=== PATIENT | female | born 1955 | race Caucasian/White ===

== ENCOUNTER 2018-03-05 19:06 | Emergency (ER) | payer MEDICARE ==
[~2018-03-05] VITALS: Ht 162.6 cm; Wt 51.7 kg
[~2018-03-05 19:06] MED LIST: ASPI81CH PO; LEVSOD100 PO; LISI5 PO; OXYC5 PO; Roxicodone5 MG PO
[2018-03-05] MEDS ORDERED: Amlodipine Bes2.5 MG PO (19:17)
[2018-03-05] MEDS ORDERED: ATEN25 PO (19:17)
[2018-03-05 19:33] LABS: BASOPHILS ABSOLUTE AUTO 0.08 K/mm3 (0.00-0.23); BASOPHILS PERCENT AUTO 1 % (0-2); EOSINOPHILS PERCENT AUTO 1 % (0-6); Hematocrit 42.2 % (33.0-51.0); Hemoglobin 14.6 g/dL (11.5-16.0); IMMATURE GRAN ABSOLUTE AUTO 0.02 K/mm3 (0.00-0.10); IMMATURE GRAN PERCENT AUTO 0 % (0-1); LYMPHOCYTES ABSOLUTE AUTO 3.46 K/mm3 (0.84-5.20); LYMPHOCYTES PERCENT AUTO 35 % (21-46); MONOCYTES ABSOLUTE AUTO 0.61 K/mm3 (0.16-1.47); MONOCYTES PERCENT AUTO 6 % (4-13); Mean Corpuscular HGB 34.2 pg (26.0-34.0); Mean Corpuscular HGB Conc 34.6 g/dL (31.5-36.5); Mean Corpuscular Volume 99 fL (80-100); Mean Platelet Volume 10.7 fL (9.1-12.4); NEUTROPHILS ABSOLUTE AUTO 5.69 K/mm3 (1.96-9.15); NEUTROPHILS PERCENT AUTO 57 % (41-73); Platelet Count 366 K/mm3 (150-400); RDW Coefficient Variation 16.3 % (11.7-14.2); RDW Standard Deviation 58.1 fL (35.1-46.3); Red Blood Cell Count 4.27 M/mm3 (3.80-5.20); White Blood Cell Count 9.96 K/mm3 (4.00-11.30)
[2018-03-05 20:04] LABS: Alanine Aminotransfer (ALT/SGP 54 U/L (12-78); Albumin, Blood 3.9 g/dL (3.4-5.0); Albumin/Globulin Ratio 1.1 (0.8-1.8); Alk Phos 89 U/L (50-136); Anion Gap 7 mmol/L (6-16); Aspartate Aminotrans (AST/SGOT 65 U/L (12-37); Bilirubin, Total 0.3 mg/dL (0.1-1.0); Blood Urea Nitrogen 11 mg/dL (8-24); Bun/Creatinine Ratio 11.2 (12.0-20.0); CO2, Blood 26 mmol/L (21-32); Calcium, Blood 9.2 mg/dL (8.5-10.1); Chloride, Blood 108 mmol/L (98-108); Creatinine, Blood 0.98 mg/dL (0.40-1.00); Globulin, Blood 3.5 g/dL (2.2-4.0); Glomerular Filtration Rate >60 (60-); Glucose, Blood 89 mg/dL (70-99); Potassium, Blood 3.9 mmol/L (3.5-5.5); Sodium, Blood 141 mmol/L (136-145); Total Protein, Blood 7.4 g/dL (6.4-8.2); Troponin I <0.015 ng/mL (0.000-0.040)
== END 2018-03-05 23:23 | disposition home or self-care (01) ==
LOC: ER 19:06
PROVIDERS: Emergency Medicine
DX: R07.9 Chest pain, unspecified (principal); I48.91 Unspecified atrial fibrillation; I13.0 Hypertensive heart and chronic kidney disease with heart failure and stage 1 through stage 4 chronic kidney disease, or unspecified chronic kidney disease; I50.9 Heart failure, unspecified; N18.9 Chronic kidney disease, unspecified; J44.9 Chronic obstructive pulmonary disease, unspecified; F17.210 Nicotine dependence, cigarettes, uncomplicated; Z79.82 Long term (current) use of aspirin; Z79.899 Other long term (current) drug therapy; N18.2 Chronic kidney disease, stage 2 (mild); D63.1 Anemia in chronic kidney disease; N25.81 Secondary hyperparathyroidism of renal origin; E55.9 Vitamin D deficiency, unspecified; E78.00 Pure hypercholesterolemia, unspecified; R76.9 Abnormal immunological finding in serum, unspecified; R94.5 Abnormal results of liver function studies; R94.6 Abnormal results of thyroid function studies; G60.9 Hereditary and idiopathic neuropathy, unspecified
CPT/HCPCS: 36415; 71046; 80053; 80069; 83690; 84443; 84484; 85018; 85025; 93005; 93010; 99285-25; J1170; J2405

== ENCOUNTER 2018-06-30 16:56 | Emergency (ER) | payer MEDICARE ==
[~2018-06-30] VITALS: Ht 162.6 cm; Wt 58.1 kg
[~2018-06-30 16:56] MED LIST changes: +ATEN25 PO; +Amlodipine Bes2.5 MG PO
[2018-06-30 17:27] LABS: BASOPHILS ABSOLUTE AUTO 0.06 K/mm3 (0.00-0.23); BASOPHILS PERCENT AUTO 1 % (0-2); EOSINOPHILS ABSOLUTE AUTO 0.07 K/mm3 (0.00-0.68); EOSINOPHILS PERCENT AUTO 1 % (0-6); Hematocrit 45.5 % (33.0-51.0); Hemoglobin 16.1 g/dL (11.5-16.0); IMMATURE GRAN ABSOLUTE AUTO 0.03 K/mm3 (0.00-0.10); IMMATURE GRAN PERCENT AUTO 0 % (0-1); LYMPHOCYTES ABSOLUTE AUTO 4.04 K/mm3 (0.84-5.20); LYMPHOCYTES PERCENT AUTO 38 % (21-46); MONOCYTES ABSOLUTE AUTO 0.64 K/mm3 (0.16-1.47); MONOCYTES PERCENT AUTO 6 % (4-13); Mean Corpuscular HGB 34.1 pg (26.0-34.0); Mean Corpuscular HGB Conc 35.4 g/dL (31.5-36.5); Mean Corpuscular Volume 96 fL (80-100); Mean Platelet Volume 9.6 fL (9.1-12.4); NEUTROPHILS ABSOLUTE AUTO 5.78 K/mm3 (1.96-9.15); NEUTROPHILS PERCENT AUTO 54 % (41-73); Platelet Count 378 K/mm3 (150-400); RDW Coefficient Variation 14.3 % (11.7-14.2); Red Blood Cell Count 4.72 M/mm3 (3.80-5.20); White Blood Cell Count 10.62 K/mm3 (4.00-11.30)
[2018-06-30 17:53] LABS: Alanine Aminotransfer (ALT/SGP 37 U/L (12-78); Albumin, Blood 4.2 g/dL (3.4-5.0); Albumin/Globulin Ratio 1.1 (0.8-1.8); Alk Phos 92 U/L (50-136); Anion Gap 8 mmol/L (6-16); Aspartate Aminotrans (AST/SGOT 39 U/L (12-37); Bilirubin, Total 0.3 mg/dL (0.1-1.0); Blood Urea Nitrogen 16 mg/dL (8-24); Bun/Creatinine Ratio 22.6 (12.0-20.0); CO2, Blood 26 mmol/L (21-32); Calcium, Blood 9.5 mg/dL (8.5-10.1); Chloride, Blood 109 mmol/L (98-108); Creatinine, Blood 0.71 mg/dL (0.40-1.00); Globulin, Blood 3.9 g/dL (2.2-4.0); Glomerular Filtration Rate >60 (60-); Glucose, Blood 87 mg/dL (70-99); Potassium, Blood 3.9 mmol/L (3.5-5.5); Sodium, Blood 143 mmol/L (136-145); Total Protein, Blood 8.1 g/dL (6.4-8.2); Troponin I <0.015 ng/mL (0.000-0.040)
[2018-06-30] MEDS ORDERED: ALBU90OI INH (19:04)
== END 2018-06-30 18:54 | disposition home or self-care (01) ==
LOC: ER 16:56
PROVIDERS: Physician Assistant
DX: J44.1 Chronic obstructive pulmonary disease with (acute) exacerbation (principal); Z72.0 Tobacco use; Z79.899 Other long term (current) drug therapy; Z79.82 Long term (current) use of aspirin; I10 Essential (primary) hypertension; F17.210 Nicotine dependence, cigarettes, uncomplicated
CPT/HCPCS: 36415; 71046; 80053; 84484; 85025; 93005; 93010; 99285-25

== ENCOUNTER 2019-07-10 16:54 | Emergency (ER) | payer MEDICARE ==
[~2019-07-10] VITALS: Ht 162.6 cm; Wt 56.7 kg
[~2019-07-10 16:54] MED LIST changes: +ALBU90OI INH; -ASPI81CH PO; +Aspirin EC81 MG PO; +HYDR1TAB94 PO; +SYNTHROID125 MC1 PO
== END 2019-07-10 19:34 | disposition home or self-care (01) ==
LOC: ER 16:54
DX: M97.31XA Periprosthetic fracture around internal prosthetic right shoulder joint, initial encounter (principal); T14.8XXA Other injury of unspecified body region, initial encounter; R60.0 Localized edema; E05.00 Thyrotoxicosis with diffuse goiter without thyrotoxic crisis or storm; I13.0 Hypertensive heart and chronic kidney disease with heart failure and stage 1 through stage 4 chronic kidney disease, or unspecified chronic kidney disease; I50.9 Heart failure, unspecified; N18.9 Chronic kidney disease, unspecified; I48.91 Unspecified atrial fibrillation; F17.200 Nicotine dependence, unspecified, uncomplicated; Z79.899 Other long term (current) drug therapy
CPT/HCPCS: 93931; 93971; 99283-25

== ENCOUNTER 2019-10-21 20:57 | Emergency (ER) | payer MEDICARE ==
[~2019-10-21] VITALS: Ht 162.6 cm; Wt 52.6 kg
[2019-10-21 21:57] LABS: BASOPHILS ABSOLUTE AUTO 0.03 K/mm3 (0.00-0.23); BASOPHILS PERCENT AUTO 0 % (0-2); EOSINOPHILS PERCENT AUTO 0 % (0-6); Hemoglobin 16.5 g/dL (11.5-16.0); IMMATURE GRAN ABSOLUTE AUTO 0.08 K/mm3 (0.00-0.10); IMMATURE GRAN PERCENT AUTO 1 % (0-1); LYMPHOCYTES ABSOLUTE AUTO 0.62 K/mm3 (0.84-5.20); LYMPHOCYTES PERCENT AUTO 4 % (21-46); MONOCYTES ABSOLUTE AUTO 0.69 K/mm3 (0.16-1.47); MONOCYTES PERCENT AUTO 4 % (4-13); Mean Corpuscular HGB 33.3 pg (26.0-34.0); Mean Corpuscular HGB Conc 35.1 g/dL (31.5-36.5); Mean Corpuscular Volume 95 fL (80-100); NEUTROPHILS ABSOLUTE AUTO 14.42 K/mm3 (1.96-9.15); NEUTROPHILS PERCENT AUTO 91 % (41-73); Platelet Count 451 K/mm3 (150-400); RDW Coefficient Variation 13.2 % (11.7-14.2); RDW Standard Deviation 46.7 fL (35.1-46.3); Red Blood Cell Count 4.95 M/mm3 (3.80-5.20); White Blood Cell Count 15.84 K/mm3 (4.00-11.30)
[2019-10-21 22:27] LABS: Alanine Aminotransfer (ALT/SGP 173 U/L (12-78); Albumin, Blood 3.6 g/dL (3.4-5.0); Albumin/Globulin Ratio 0.8 (0.8-1.8); Alk Phos 164 U/L (50-136); Anion Gap 9 mmol/L (6-16); Aspartate Aminotrans (AST/SGOT 389 U/L (12-37); Blood Urea Nitrogen 8 mg/dL (8-24); Bun/Creatinine Ratio 10.7 (12.0-20.0); CO2, Blood 26 mmol/L (21-32); Calcium, Blood 10.8 mg/dL (8.5-10.1); Chloride, Blood 100 mmol/L (98-108); Creatinine, Blood 0.75 mg/dL (0.40-1.00); Globulin, Blood 4.6 g/dL (2.2-4.0); Glomerular Filtration Rate >60 (60-); Glucose, Blood 118 mg/dL (70-99); Potassium, Blood 3.5 mmol/L (3.5-5.5); Sodium, Blood 135 mmol/L (136-145); Total Protein, Blood 8.2 g/dL (6.4-8.2)
[2019-10-22] MEDS ORDERED: OXYCODONE-ACET1 EAC3 PO (01:21)
[2019-10-22 01:34] LABS: Source, Urine Clean Catch
[2019-10-22 01:51] LABS: Appearance, Urine Clear (Clear); Bilirubin, Urine Neg (Neg); Blood, Urine 1+ (Neg); Color, Urine Yellow (P-Yellow); Glucose Qualitative, Urine 1+ (Neg); Ketones, Urine 3+ (Neg); Leukocyte Esterase, Urine Neg (Neg); Nitrite, Urine Pos (Neg); Protein, Urine 2+ (Neg); Specific Gravity, Urine 1.015 (1.003-1.022); Urobilinogen, Urine NORM (Normal)
[2019-10-22 01:58] LABS: Bacteria Many /hpf; Red Blood Cells, Urine 0-2 /hpf (0-2); Squamous Epithelial Cells Rare /hpf (Few)
[2019-10-22 01:59] LABS: Mucus Light (0-Heavy)
[2019-10-22] MEDS ORDERED: EUTHYROX125 MC1 PO (02:40)
[2019-10-22 03:11] LABS: International Normalized Ratio 0.96; Prothrombin Time Results 10.3 Sec (9.7-11.5)
== END 2019-10-22 03:20 | disposition short-term general hospital (02) ==
LOC: ER 20:57
PROVIDERS: Emergency Medicine; Physician Assistant
DX: A41.9 Sepsis, unspecified organism (principal); K80.40 Calculus of bile duct with cholecystitis, unspecified, without obstruction; Z20.828 Contact with and (suspected) exposure to other viral communicable diseases; I13.0 Hypertensive heart and chronic kidney disease with heart failure and stage 1 through stage 4 chronic kidney disease, or unspecified chronic kidney disease; I50.9 Heart failure, unspecified; N18.9 Chronic kidney disease, unspecified; I48.91 Unspecified atrial fibrillation; J44.9 Chronic obstructive pulmonary disease, unspecified; F17.200 Nicotine dependence, unspecified, uncomplicated
CPT/HCPCS: 36415; 74177; 80053; 81001; 83605; 83690; 85025; 85610; 85730; 87040; 87077; 87086; 87186; 93005; 93010; 96365; 96375; 99285-25; J2405; J2543; J3010; J7030; Q9967; U0002

== ENCOUNTER 2021-03-18 21:04 | Emergency (ER) | payer MEDICARE ==
[~2021-03-18] VITALS: Ht 167.6 cm; Wt 56.7 kg
[~2021-03-18 21:04] MED LIST changes: +EUTHYROX125 MC1 PO; +OXYCODONE-ACET1 EAC3 PO
[2021-03-18 22:16] LABS: BASOPHILS ABSOLUTE AUTO 0.04 K/mm3 (0.00-0.23); BASOPHILS PERCENT AUTO 1 % (0-2); EOSINOPHILS PERCENT AUTO 0 % (0-6); Hematocrit 31.6 % (33.0-51.0); Hemoglobin 11.1 g/dL (11.5-16.0); IMMATURE GRAN ABSOLUTE AUTO 0.03 K/mm3 (0.00-0.10); IMMATURE GRAN PERCENT AUTO 0 % (0-1); LYMPHOCYTES ABSOLUTE AUTO 1.21 K/mm3 (0.84-5.20); LYMPHOCYTES PERCENT AUTO 16 % (21-46); MONOCYTES PERCENT AUTO 7 % (4-13); Mean Corpuscular HGB Conc 35.1 g/dL (31.5-36.5); Mean Corpuscular Volume 97 fL (80-100); Mean Platelet Volume 11.7 fL (9.1-12.4); NEUTROPHILS PERCENT AUTO 76 % (41-73); Platelet Count 225 K/mm3 (150-400); RDW Coefficient Variation 15.2 % (11.7-14.2); RDW Standard Deviation 54.2 fL (35.1-46.3); Red Blood Cell Count 3.26 M/mm3 (3.80-5.20); White Blood Cell Count 7.38 K/mm3 (4.00-11.30)
[2021-03-18 22:34] LABS: Albumin, Blood 3.1 g/dL (3.4-5.0); Albumin/Globulin Ratio 0.8 (0.8-1.8); Bilirubin, Total 0.7 mg/dL (0.1-1.0); Bun/Creatinine Ratio 18.3 (12.0-20.0); Calcium, Blood 9.2 mg/dL (8.5-10.1); Creatinine, Blood 1.31 mg/dL (0.40-1.00); Globulin, Blood 4.1 g/dL (2.2-4.0); Potassium, Blood 3.6 mmol/L (3.5-5.5); Total Protein, Blood 7.2 g/dL (6.4-8.2)
[2021-03-19] MEDS ORDERED: METPRE4DP PO (00:15)
[2021-03-19 00:18] LABS: Adenovirus Not Detected (NOT DETECT); Coronavirus 229E Not Detected (NOT DETECT)
[2021-03-19 00:19] LABS: Coronavirus HKU1 Not Detected (NOT DETECT); Coronavirus NL63 Not Detected (NOT DETECT); Coronavirus OC43 Not Detected (NOT DETECT); SARS-Cov-2 (COVID-19), BioFire Detected (NOT DETECT)
[2021-03-19 00:21] LABS: Bordetella pertussis Not Detected (NOT DETECT); Chlamydophila pneumoniae Not Detected (NOT DETECT); Human Metapneumovirus Not Detected (NOT DETECT); Human Rhinovirus/Enterovirus Not Detected (NOT DETECT); Influenza A/2009-H1 Not Detected (NOT DETECT); Influenza A/H1 Not Detected (NOT DETECT); Influenza A/H3 Not Detected (NOT DETECT); Influenza B Not Detected (NOT DETECT); Mycoplasma pneumoniae Not Detected (NOT DETECT); Parainfluenza Virus 1 Not Detected (NOT DETECT); Parainfluenza Virus 2 Not Detected (NOT DETECT); Parainfluenza Virus 3 Not Detected (NOT DETECT); Parainfluenza Virus 4 Not Detected (NOT DETECT); Respiratory Syncytial Virus Not Detected (NOT DETECT)
[2021-03-19 03:23] LABS: Source, Urine Clean Catch
[2021-03-19 03:29] LABS: Blood, Urine 1+ (Neg); Glucose Qualitative, Urine Neg (Neg); Ketones, Urine 2+ (Neg); Leukocyte Esterase, Urine 1+ (Neg); Nitrite, Urine Neg (Neg); Protein, Urine 2+ (Neg); Specific Gravity, Urine 1.025 (1.003-1.022); Urobilinogen, Urine 2+ (Normal)
[2021-03-19 03:37] LABS: Appearance, Urine Hazy (Clear); Bilirubin, Urine 2+ (Neg); Color, Urine Yellow (P-Yellow)
[2021-03-19 03:38] LABS: Amorphous Light (0-Heavy); Bacteria Many /hpf; Red Blood Cells, Urine 0-2 /hpf (0-2); Squamous Epithelial Cells Mod /hpf (Few)
[2021-03-19] MEDS ORDERED: NITR100CA PO (11:12)
== END 2021-03-19 12:35 | disposition home or self-care (01) ==
LOC: ER 21:04
PROVIDERS: Emergency Medicine; Student in an Organized Health Care Education/Training Program
DX: U07.1 COVID-19 (principal); J44.1 Chronic obstructive pulmonary disease with (acute) exacerbation; N39.0 Urinary tract infection, site not specified; E86.0 Dehydration; I50.9 Heart failure, unspecified; I13.0 Hypertensive heart and chronic kidney disease with heart failure and stage 1 through stage 4 chronic kidney disease, or unspecified chronic kidney disease; N18.9 Chronic kidney disease, unspecified; I48.91 Unspecified atrial fibrillation; Z79.891 Long term (current) use of opiate analgesic; Z79.899 Other long term (current) drug therapy
CPT/HCPCS: 0202U; 71045; 80053; 81001; 83880; 84484; 85025; 87086; 93005; 93010; 94640; 96374; 96375; 97110; 97162; 99285-25; J0696; J2930; J7030

== ENCOUNTER 2021-07-12 16:23 | Inpatient (IN) | payer MEDICARE ==
[~2021-07-12] VITALS: Ht 162.6 cm; Wt 47.8 kg
[~2021-07-12 16:23] MED LIST changes: +METPRE4DP PO; +NITR100CA PO
[2021-07-12 17:42] LABS: BASOPHILS ABSOLUTE AUTO 0.03 K/mm3 (0.00-0.23); BASOPHILS PERCENT AUTO 1 % (0-2); EOSINOPHILS PERCENT AUTO 2 % (0-6); Hematocrit 21.3 % (33.0-51.0); Hemoglobin 7.5 g/dL (11.5-16.0); Mean Corpuscular HGB 30.2 pg (26.0-34.0); Mean Corpuscular HGB Conc 35.2 g/dL (31.5-36.5); Mean Corpuscular Volume 86 fL (80-100); Mean Platelet Volume 10.8 fL (9.1-12.4); NRBC ABSOLUTE 0.06 K/mm3 (0.00-0.02); Platelet Count 175 K/mm3 (150-400); RDW Coefficient Variation 18.2 % (11.7-14.2); RDW Standard Deviation 56.7 fL (35.1-46.3); Red Blood Cell Count 2.48 M/mm3 (3.80-5.20); White Blood Cell Count 6.17 K/mm3 (4.00-11.30)
[2021-07-12 17:43] LABS: IMMATURE GRAN ABSOLUTE AUTO 0.04 K/mm3 (0.00-0.10); IMMATURE GRAN PERCENT AUTO 1 % (0-1); LYMPHOCYTES ABSOLUTE AUTO 2.83 K/mm3 (0.84-5.20); LYMPHOCYTES PERCENT AUTO 46 % (21-46); MONOCYTES ABSOLUTE AUTO 0.15 K/mm3 (0.16-1.47); MONOCYTES PERCENT AUTO 2 % (4-13); NEUTROPHILS ABSOLUTE AUTO 3.02 K/mm3 (1.96-9.15); NEUTROPHILS PERCENT AUTO 49 % (41-73)
[2021-07-12 17:58] LABS: Albumin, Blood 2.7 g/dL (3.4-5.0); Albumin/Globulin Ratio 0.6 (0.8-1.8); Bun/Creatinine Ratio 9.3 (12.0-20.0); Calcium, Blood 8.7 mg/dL (8.5-10.1); Creatinine, Blood 0.86 mg/dL (0.40-1.00); Globulin, Blood 4.5 g/dL (2.2-4.0); Potassium, Blood 2.5 mmol/L (3.5-5.5); Total Protein, Blood 7.2 g/dL (6.4-8.2)
[2021-07-12 19:34] LABS: Source, Urine Clean Catch
[2021-07-12 19:44] LABS: Appearance, Urine Hazy (Clear); Blood, Urine Neg (Neg); Color, Urine Amber (P-Yellow); Glucose Qualitative, Urine Neg (Neg); Ketones, Urine 1+ (Neg); Leukocyte Esterase, Urine 1+ (Neg); Nitrite, Urine Neg (Neg); Protein, Urine 1+ (Neg); Specific Gravity, Urine 1.015 (1.003-1.022); Urobilinogen, Urine 4+ (Normal)
[2021-07-12 19:55] LABS: Bilirubin, Urine 2+ (Neg)
[2021-07-12 19:57] LABS: Bacteria Many /hpf; Red Blood Cells, Urine 0-2 /hpf (0-2); Squamous Epithelial Cells Many /hpf (Few)
[2021-07-12] MEDS ORDERED: ASPI81CH PO (21:50)
[2021-07-12] MEDS ORDERED: ASPI81CH (21:50)
[2021-07-12 23:01] LABS: Hematocrit 21.2 % (33.0-51.0); Hemoglobin 7.7 g/dL (11.5-16.0); IMMATURE RETIC FRACTION 19.1 % (2.3-16.0); RETIC HGB EQUIVALENT 28.5 pg (28.20-36.60); RETICULOCYTE COUNT PERCENT 1.47 % (0.50-2.50)
[2021-07-12 23:27] LABS: Free Thyroxine 0.11 ng/dL (0.70-1.60); Percent Saturation 56.9 % (15.0-50.0); Thyroid Stimulating Hormone 46.2 uIU/mL (0.360-4.800)
--- NOTE | 2021-07-13 04:28 | NUR ---
SHIFT SUMMARY 66 YR F ADMITTED ON 07/12/21 FOR FATIGUE, WEAKNESS, AND LOSS OF APPETITE X 2 WKS. FULL CODE. PT IS A&O X 4 AND IS PLEASANT AND COOPERATIVE. SHE IS VERY DIFFICULT TO START AN IV ON BUT ACCESS WAS FINALLY GAINED AFTER ABOUT AN HOUR OF ATTEMPS AND 1 UNIT OF PRBC WAS INFUSED. HOWEVER, THE IV INFILTRATED AND NOONE WAS AVAILABLE TO DO A POWERGLIDE. CHARGE NURSE WAS ABLE TO START ANOTHER PERIPHERAL IV AND ANOTHER INFUSION WAS STARTED. PT HAS SEVERAL INFUSIONS WAITING AND ALL ARE LATE DUE TO THE IV SITUATION.
[2021-07-13 06:35] LABS: Hematocrit 18.8 % (33.0-51.0); Hemoglobin 6.8 g/dL (11.5-16.0); Mean Corpuscular HGB 31.1 pg (26.0-34.0); Mean Corpuscular HGB Conc 36.2 g/dL (31.5-36.5); Mean Corpuscular Volume 86 fL (80-100); Mean Platelet Volume 11.1 fL (9.1-12.4); NRBC ABSOLUTE 0.05 K/mm3 (0.00-0.02); NRBC Auto 0.7 /100 WBC (0.0-0.2); Platelet Count 164 K/mm3 (150-400); RDW Coefficient Variation 18.6 % (11.7-14.2); RDW Standard Deviation 58.1 fL (35.1-46.3); Red Blood Cell Count 2.19 M/mm3 (3.80-5.20); White Blood Cell Count 7.49 K/mm3 (4.00-11.30)
[2021-07-13 06:51] LABS: Albumin, Blood 2.6 g/dL (3.4-5.0); Albumin/Globulin Ratio 0.6 (0.8-1.8); Bilirubin, Total 1.6 mg/dL (0.1-1.0); Bun/Creatinine Ratio 9.4 (12.0-20.0); Calcium, Blood 8.5 mg/dL (8.5-10.1); Creatinine, Blood 0.85 mg/dL (0.40-1.00); Potassium, Blood 3.4 mmol/L (3.5-5.5); Total Protein, Blood 6.6 g/dL (6.4-8.2)
[2021-07-13 07:01] LABS: BASOPHILS PERCENT MAN 0 % (0-2); EOSINOPHILS PERCENT MAN 0 % (0-6); LYMPHOCYTES ABSOLUTE MAN 2.84 K/mm3 (0.84-5.20); LYMPHOCYTES PERCENT MAN 38 % (21-46); MONOCYTES ABSOLUTE MAN 0.07 K/mm3 (0.16-1.47); MONOCYTES PERCENT MAN 1 % (4-13); NEUTROPHILS ABSOLUTE MAN 4.56 K/mm3 (1.96-9.15); SEG NEUTROPHILS PERCENT MAN 61 % (41-73); TOTAL CELLS COUNTED 100
[2021-07-13 13:21] LABS: International Normalized Ratio 1.1; Prothrombin Time Results 11.5 Sec (9.7-11.5)
[2021-07-13 16:06] LABS: Hematocrit 23.9 % (33.0-51.0); Hemoglobin 8.6 g/dL (11.5-16.0)
--- NOTE | 2021-07-13 16:48 | NUR ---
DAYSHIFT SUMMARY Pt worked with therapy early this morning, increased weakness/activity intolerance, pt walked to the BR then stated she could not walk back to bed. Pt incontinent of urine. Requiring 2 person hands on assist with transfers, pt unable to stand very long. SOB on excertion. Potassium phosphate infusing via left forearm IV, 0900 RN noted that IV site had purple brusing & edematous. Stopped infusion & removed IV. Placed warm compress to area. assessed pt at [facility], aware of left arm bruising/edema. Midline catheter placed in right upper extremity. Morning Hgb & Hct 6.6/18.8. 1 unit PRBCs transfused, Hgb & Hct post-transfusion 8.6/23.9. High BP this shift, ordered Cozaar. Pt resting in bed all shift. discussed SNF with pt, pt agreed to SNF referral. 1 unit PRBC transfused.
[2021-07-13 22:43] LABS: Hematocrit 23.9 % (33.0-51.0); Hemoglobin 8.6 g/dL (11.5-16.0)
[2021-07-14 00:26] LABS: Source, Urine Clean Catch
[2021-07-14 00:29] LABS: Bilirubin, Urine Neg (Neg); Blood, Urine Neg (Neg); Glucose Qualitative, Urine Neg (Neg); Ketones, Urine Neg (Neg); Leukocyte Esterase, Urine Neg (Neg); Nitrite, Urine Neg (Neg); Protein, Urine Neg (Neg); Urobilinogen, Urine 2+ (Normal)
[2021-07-14 00:37] LABS: Appearance, Urine Clear (Clear); Color, Urine Yellow (P-Yellow)
--- NOTE | 2021-07-14 04:16 | NUR ---
SHIFT SUMMARY ADMITTED FOR HYPOKALEMIA. FULL CODE. PLAN IS FOR PLACEMENT. TELEMETRY: NSR @ 88 BPM. 1 ASSIST TO BSC. SHE IS FRAGILE AND FRAIL, WEAK. SHE IS CONFUSED THIS SHIFT, CALLING OUT FOR HER . POWERGLIDE LINE IN LUE. HX OF ETOH. PHYSICAL & OCCUPATIONAL THERAPIES ARE WORKING WITH THIS PT. HGB 8.6 ON PREVIOUS LAB, AWAITING NEW LABS
--- NOTE | 2021-07-14 18:34 | NUR ---
PATIENT HAS CONFUSION. SHE WAS LOOKING FOR HER CELL PHONE THAT HER "DAD" PUT SOMEWHERE TODAY. SHE WAS ACTIVELY TRYING TO GET OUT OF BED WITHOUT CALLING FOR HELP AND APPEARED ANXIOUS. DR. CEDILLO APPROVED 0.5MG ATIVAN q6PRN FOR ANXIETY. AFTER ADMINISTERED SHE NAPPED AND WAS MORE COMFORTABLE. PATIENT WAITING FOR PLACEMENT INTO SNF.
--- NOTE | 2021-07-14 18:36 | NUR ---
PATIENT ADMITTED FROM ER LATE THIS AFTERNOON. HE IS SALINE LOCKED AT THIS TIME. HE HAS AN INFECTION IN THE RIGHT ARM, WITH ALOT OF PAIN AND SWELLING. THERE IS A SCABBED OVER AREA ON HIS CHEST THAT WAS NOTED TO BE MRSA. IT IS NO LONGER DRAINING. HE IS IN ISOLATION UNTIL AT LEAST TOMORROW WHEN C[facility] COME BACK. TORODOL IS ORDERED IV FOR PAIN AND IT IS EFFECTIVE. HE IS DIABETIC. WAITING FOR INSULIN ORDER TO TRANSFER TO [facility] SO IT CAN BE PULLED, BUT ALSO WAITING TO ADMINISTER UNTIL HIS DINNER TRAY ARRIVES/ THOUGHT IT WOULD BE HERE AT DINNER TIME/ CALLED DIETARY WITH NO ANSWER YET.
--- NOTE | 2021-07-15 05:02 | NUR ---
SHIFT SUMMARY: ASSUMED CARE OF PATIENT PARTIAL WAY THROUGH SHIFT. PATIENT ASLEPP COMFORTABLY IN BED. ADDITIONAL ASSESSMENTS DEFFERED IT HAD BEEN DONE BY PREVIOUS RN. PATIENT HAS BASELINE CONFUSION AND REQUIRED PRN ATIVAN PRIOR, THUS PROMOTING SLEEP AT THIS TIME.
[2021-07-15 06:10] LABS: Hematocrit 24.1 % (33.0-51.0); Hemoglobin 8.7 g/dL (11.5-16.0); Mean Corpuscular HGB 30.4 pg (26.0-34.0); Mean Corpuscular HGB Conc 36.1 g/dL (31.5-36.5); Mean Corpuscular Volume 84 fL (80-100); Mean Platelet Volume 10.8 fL (9.1-12.4); NRBC ABSOLUTE 0.09 K/mm3 (0.00-0.02); Platelet Count 153 K/mm3 (150-400); RDW Coefficient Variation 18.1 % (11.7-14.2); RDW Standard Deviation 55.2 fL (35.1-46.3); Red Blood Cell Count 2.86 M/mm3 (3.80-5.20); White Blood Cell Count 8.73 K/mm3 (4.00-11.30)
[2021-07-15 06:27] LABS: Calcium, Blood 9.5 mg/dL (8.5-10.1); Creatinine, Blood 0.92 mg/dL (0.40-1.00); Potassium, Blood 3.8 mmol/L (3.5-5.5)
[2021-07-15 06:36] LABS: BASOPHILS PERCENT MAN 0 % (0-2); EOSINOPHILS PERCENT MAN 0 % (0-6); LYMPHOCYTES ABSOLUTE MAN 2.96 K/mm3 (0.84-5.20); LYMPHOCYTES PERCENT MAN 34 % (21-46); MONOCYTES ABSOLUTE MAN 0.17 K/mm3 (0.16-1.47); MONOCYTES PERCENT MAN 2 % (4-13); NEUTROPHILS ABSOLUTE MAN 5.58 K/mm3 (1.96-9.15); SEG NEUTROPHILS PERCENT MAN 64 % (41-73); TOTAL CELLS COUNTED 100
--- NOTE | 2021-07-15 16:46 | NUR ---
NO ACUTE CHANGES AT THIS TIME. PT AOX2 WITH CONFUSSION. PT IS A ONE PERSON WITH GAITBELT. NO DISTRESS NOTED. PT NEEDS BED ALARM IN PLACE SHE WILL NOT CALL. CALL LIGHT IS WITHIN REACH AND BED ALARM IN PLACE WILL CONTINUE TO MONITOR.
--- NOTE | 2021-07-16 02:56 | NUR ---
SHIFT SUMMARY NO ACUTE CHANGES OVERNIGHT. PT APPEARS TO HAVE SOME CONFUSION LAST NIGHT. SHE WAS LOOKING FOR HER , DIDNT KNOW WHERE SHE WAS, REORIENTED. PT EXPERIENCED SOME ANXIETY, BUT COOPERATIVE AND PLEASEANT. MEDICATED WITH ATIVAN AT NIGHT. VSS. MILD HYPOTENSIVE BUT ASYMPTOMATIC, DENIES CHEST PAIN, DIZZINESS, AND SOB. ATTENDS IN PLACE, INCONTINENT. VOIDING. CALL LIGHT WITHIN REACH. WILL CONTINUE TO MONITOR AND WILL PROVIDE REPORT TO ONCOMING NURSE.
--- NOTE | 2021-07-16 16:15 | NUR ---
THIS RN IS PASSING CARE OF PT TO MARINO RN REPORT WAS GIVEN PRIOR. PT HAS HAD NO ACUTE CHANGES. PT DID NOT WANT TO WORK WITH PHYSICAL THERAPY AND HAS BEEN A BIT WITHDRAWN. PT IS COOPERATIVE WITH HER OTHER CARE NEEDS AT THIS TIME. PT IN BED WATCHING TV NO DISTRESS NOTED.
--- NOTE | 2021-07-16 18:39 | NUR ---
SHIFT SUMMARY PATIENT IS PLEASANT AND COOPERATIVE. DOES NOT USE CALL LIGHT APPROPRIATLY. WILL PUSH CALL LIGHT BUT WHEN ASKED WHAT SHE NEEDS SHE IS UNSURE OR DID NOT NEED ANYTHING. CONFUSED AT TIMES. 1-2PA DEPENDING ON MENTATION. REPORTED SHE IS INCONT AT TIMES. NO SIGNIFICANT EVENTS WHILE THIS RN IS CARING FOR PATIENT. BED IN LOW POSITION WITH BED ALARM ON. WILL CONTINUE TO MONITOR.
--- NOTE | 2021-07-17 04:14 | NUR ---
DIAGNOSTIC TECHNICIAN SUMMARY HAS BEEN AWAKE AT INTERVALS. INCONT OF URINE ONCE. INTERMITTENT MOANING. WHEN ASKED IF SHE WAS IN PAIN, VOICED PAIN OF "RIGHT SHOULDER" BUT POINTED AT RIGHT ARM AND FOREARM. SKIN DRY AND DISCOLORED. CALL PLACED TO MD PAD TUFTER, ORDERS FOR TYLENOL OBTAINED. CALL LIGHT IN REACH.
[2021-07-17] MEDS ORDERED: LOSA25 PO (12:52)
== END 2021-07-17 14:00 | disposition home health service (06) | DRG 811 ==
LOC: ER 16:23 → MEDS 16:24
PROVIDERS: Internal Medicine; Physician Assistant; ADMIT Internal Medicine
PROC: 30233N1 Transfusion of Nonautologous Red Blood Cells into Peripheral Vein, Percutaneous Approach (ICD-10-PCS; principal; 2021-07-12)
DX: D53.9 Nutritional anemia, unspecified (principal); E43 Unspecified severe protein-calorie malnutrition; Z79.82 Long term (current) use of aspirin; D52.9 Folate deficiency anemia, unspecified; E87.6 Hypokalemia; E83.42 Hypomagnesemia; F10.20 Alcohol dependence, uncomplicated; R53.81 Other malaise; F03.90 Unspecified dementia, unspecified severity, without behavioral disturbance, psychotic disturbance, mood disturbance, and anxiety; I10 Essential (primary) hypertension; E03.9 Hypothyroidism, unspecified; E05.00 Thyrotoxicosis with diffuse goiter without thyrotoxic crisis or storm; Z79.899 Other long term (current) drug therapy; F17.210 Nicotine dependence, cigarettes, uncomplicated; Z98.890 Other specified postprocedural states; Z90.81 Acquired absence of spleen; Z90.410 Acquired total absence of pancreas; M32.9 Systemic lupus erythematosus, unspecified; E83.30 Disorder of phosphorus metabolism, unspecified; Z68.20 Body mass index [BMI] 20.0-20.9, adult; Z90.49 Acquired absence of other specified parts of digestive tract
CPT/HCPCS: 36415; 36430; 80048; 80053; 81001; 81003; 82607; 82728; 82746; 83516; 83540; 83550; 83735; 84100; 84439; 84443; 85014; 85018; 85025; 85045; 85610; 86850; 86900; 86901; 86923; 87086; 93005; 93010; 94760; 96365; 97110; 97116; 97129; 97130; 97162; 97166; 97530; 97535; 99285-25; A9270; G0378; J3411; J3475; J3480; J7030; J7040; J7060; P9016

== ENCOUNTER 2022-12-06 18:19 | Inpatient (IN) | payer MEDICARE ==
[~2022-12-06] VITALS: Ht 160 cm; Wt 44.6 kg
[~2022-12-06 18:19] MED LIST changes: +ASPI81CH PO; +LOSA25 PO
[2022-12-06 19:26] LABS: BASOPHILS ABSOLUTE AUTO 0.02 K/mm3 (0.00-0.23); BASOPHILS PERCENT AUTO 0 % (0-2); EOSINOPHILS ABSOLUTE AUTO 0.04 K/mm3 (0.00-0.68); EOSINOPHILS PERCENT AUTO 1 % (0-6); Hematocrit 40.7 % (33.0-51.0); Hemoglobin 14.8 g/dL (11.5-16.0); IMMATURE GRAN ABSOLUTE AUTO 0.05 K/mm3 (0.00-0.10); IMMATURE GRAN PERCENT AUTO 1 % (0-1); LYMPHOCYTES ABSOLUTE AUTO 2.01 K/mm3 (0.84-5.20); LYMPHOCYTES PERCENT AUTO 36 % (21-46); MONOCYTES ABSOLUTE AUTO 0.48 K/mm3 (0.16-1.47); MONOCYTES PERCENT AUTO 9 % (4-13); Mean Corpuscular HGB 33.6 pg (26.0-34.0); Mean Corpuscular HGB Conc 36.4 g/dL (31.5-36.5); Mean Corpuscular Volume 93 fL (80-100); Mean Platelet Volume 10.1 fL (9.1-12.4); NEUTROPHILS ABSOLUTE AUTO 2.98 K/mm3 (1.96-9.15); NEUTROPHILS PERCENT AUTO 53 % (41-73); Platelet Count 87 K/mm3 (150-400); RDW Coefficient Variation 14.6 % (11.7-14.2); RDW Standard Deviation 48.9 fL (35.1-46.3); White Blood Cell Count 5.58 K/mm3 (4.00-11.30)
[2022-12-06 19:36] LABS: Source, Urine Straight Cath
[2022-12-06 19:46] LABS: Alanine Aminotransfer (ALT/SGP 22 U/L (12-78); Albumin, Blood 3.2 g/dL (3.4-5.0); Albumin/Globulin Ratio 0.6 (0.8-1.8); Alk Phos 90 U/L (50-136); Anion Gap 7 mmol/L (6-16); Aspartate Aminotrans (AST/SGOT 65 U/L (12-37); Blood Urea Nitrogen 13 mg/dL (8-24); Bun/Creatinine Ratio 9.4 (12.0-20.0); CO2, Blood 29 mmol/L (21-32); Calcium, Blood 9.9 mg/dL (8.5-10.1); Chloride, Blood 102 mmol/L (98-108); Creatinine, Blood 1.39 mg/dL (0.40-1.00); Glomerular Filtration Rate 42 (60-); Glucose, Blood 102 mg/dL (70-99); Potassium, Blood 3.4 mmol/L (3.5-5.5); Sodium, Blood 138 mmol/L (136-145); Total Protein, Blood 8.2 g/dL (6.4-8.2)
[2022-12-06 19:56] LABS: Appearance, Urine Hazy (Clear); Blood, Urine 2+ (Neg); Color, Urine Yellow (P-Yellow); Glucose Qualitative, Urine Neg (Neg); Ketones, Urine Neg (Neg); Leukocyte Esterase, Urine 1+ (Neg); Nitrite, Urine Pos (Neg); Protein, Urine 2+ (Neg); Urobilinogen, Urine 3+ (Normal)
[2022-12-06 20:12] LABS: U Amphetamine Screen Not Detected; U Barbituate Screen Not Detected; U Benzodiazapine Screen Not Detected; U Buprenorphine Screen Not Detected; U Cannabinoids Screen Not Detected; U Cocaine Screen Not Detected; U Methadone Screen Not Detected; U Methamphetamine Screen Not Detected; U Opiates Screen Not Detected; U Oxycodone Screen Not Detected; U Phencyclidine Screen Not Detected; U Propoxyphene Screen Not Detected
[2022-12-06 20:14] LABS: Bilirubin, Urine 1+ (Neg)
[2022-12-06 20:15] LABS: Bacteria Many /hpf; Hyaline Casts 0-2 /lpf (0-2); Mucus Light (0-Heavy); Red Blood Cells, Urine 0-2 /hpf (0-2); Squamous Epithelial Cells Mod /hpf (Few)
[2022-12-06 20:27] LABS: Magnesium, Blood 1.8 mg/dL (1.6-2.4)
[2022-12-06 20:56] LABS: Ethanol (Alcohol), Blood, Med <3 mg/dL
[2022-12-06 22:09] LABS: Free Thyroxine 0.24 ng/dL (0.70-1.60)
[2022-12-06 22:11] LABS: Influenza A, PCR NEGATIVE (NEGATIVE); Influenza B, PCR NEGATIVE (NEGATIVE); Resp Syncytial Virus, PCR NEGATIVE (NEGATIVE)
[2022-12-06 22:16] LABS: SARS-Cov-2 (COVID-19) PCR, MMC POSITIVE (NEGATIVE)
[2022-12-07 01:17] VITALS: BP 142/97
[2022-12-07 04:20] VITALS: BP 122/80
[2022-12-07 05:24] LABS: BASOPHILS ABSOLUTE AUTO 0.03 K/mm3 (0.00-0.23); BASOPHILS PERCENT AUTO 0 % (0-2); EOSINOPHILS ABSOLUTE AUTO 0.01 K/mm3 (0.00-0.68); EOSINOPHILS PERCENT AUTO 0 % (0-6); Hemoglobin 14.9 g/dL (11.5-16.0); IMMATURE GRAN ABSOLUTE AUTO 0.06 K/mm3 (0.00-0.10); IMMATURE GRAN PERCENT AUTO 1 % (0-1); LYMPHOCYTES ABSOLUTE AUTO 1.61 K/mm3 (0.84-5.20); LYMPHOCYTES PERCENT AUTO 17 % (21-46); MONOCYTES ABSOLUTE AUTO 0.66 K/mm3 (0.16-1.47); MONOCYTES PERCENT AUTO 7 % (4-13); Mean Corpuscular HGB 34.3 pg (26.0-34.0); Mean Corpuscular HGB Conc 36.3 g/dL (31.5-36.5); Mean Corpuscular Volume 94 fL (80-100); Mean Platelet Volume 11.2 fL (9.1-12.4); NEUTROPHILS ABSOLUTE AUTO 7.37 K/mm3 (1.96-9.15); NEUTROPHILS PERCENT AUTO 76 % (41-73); NRBC ABSOLUTE 0.02 K/mm3 (0.00-0.02); NRBC Auto 0.2 /100 WBC (0.0-0.2); Platelet Count 78 K/mm3 (150-400); RDW Coefficient Variation 14.4 % (11.7-14.2); RDW Standard Deviation 49.8 fL (35.1-46.3); Red Blood Cell Count 4.35 M/mm3 (3.80-5.20); White Blood Cell Count 9.74 K/mm3 (4.00-11.30)
--- NOTE | 2022-12-07 05:26 | NUR ---
NOC SHIFT SUMMARY: NEW ADMIT. PATIENT IS ALERT, BUT NONVERBAL. SACRAL DRESSING IN PLACE. BLISTER ON BOTTOM WHEN PATIENT FIRST ARRIVED, BUT IT OPENED UP. PICTURES IN CHART. BOTTOM IS RED. BRUISES AND SCABS THROUGHOUT HER BODY. LR AT 75 X 1 LITER. HOME MEDICATION LIST NOT COMPLETED. CT OF HEAD NEGATIVE. ?BOYFRIEND OR INVOLVED.
[2022-12-07 06:02] LABS: Albumin, Blood 2.9 g/dL (3.4-5.0); Albumin/Globulin Ratio 0.6 (0.8-1.8); Bilirubin, Total 0.7 mg/dL (0.1-1.0); Bun/Creatinine Ratio 10.3 (12.0-20.0); Calcium, Blood 8.9 mg/dL (8.5-10.1); Creatinine, Blood 1.16 mg/dL (0.40-1.00); Globulin, Blood 4.5 g/dL (2.2-4.0); Magnesium, Blood 1.4 mg/dL (1.6-2.4); Potassium, Blood 3.6 mmol/L (3.5-5.5); Total Protein, Blood 7.4 g/dL (6.4-8.2)
[2022-12-07 07:33] VITALS: BP 113/79
[2022-12-07 16:47] VITALS: BP 120/86
--- NOTE | 2022-12-07 17:34 | NUR ---
SHIFT SUMMARY PT A&O TO SELF AND PERSON, REQUIRES REORIENTATION TO TIME/DATE, AND CURRENT SITUATION. PT NON VERBAL THIS AM AND IS NOW SLIGHTLY VERBAL AND ABLE TO SPEAK FULL SENTENCES. PT INCONTINENT AT THIS TIME, BEDRIDDEN, NOT TOLERATING PO, CONTRACTURES IMPROVED, AND DENIES PAIN. CORE DIPPER ROUNDED THIS AM AND RECOMMENDED DOBHOFF FOR NUTRITION IF PO INTAKE NOT IMPROVED. CALL LIGHT WITHIN REACH AND PT ABLE TO MAKE NEEDS KNOWN.
[2022-12-07 19:35] VITALS: BP 120/82
--- NOTE | 2022-12-08 03:56 | NUR ---
SHIFT SUMMARY PATIENT A/Ox2, ALERT MOSTLY TO SELF, PLEASANTLY CONFUSED. ASLEEP OFF AND ON THROUGHOUT SHIFT. TOOK MEDS WHOLE WITH WATER, NO DIFFICULTY SWOLLOWING, TOLLERATED WELL. NO ACUTE CHANGES NOTED OVERNIGHT. BED LOCKED AND IN LOWEST POSITION, CALL LIGHT WITHIN REACH.
[2022-12-08 04:10] VITALS: BP 142/118
[2022-12-08 05:46] LABS: Hematocrit 37.6 % (33.0-51.0); Hemoglobin 13.9 g/dL (11.5-16.0); Mean Corpuscular HGB 34.1 pg (26.0-34.0); Mean Corpuscular Volume 92 fL (80-100); Mean Platelet Volume 10.7 fL (9.1-12.4); Platelet Count 61 K/mm3 (150-400); RDW Coefficient Variation 13.9 % (11.7-14.2); RDW Standard Deviation 46.9 fL (35.1-46.3); Red Blood Cell Count 4.08 M/mm3 (3.80-5.20); White Blood Cell Count 7.09 K/mm3 (4.00-11.30)
[2022-12-08 05:58] LABS: International Normalized Ratio 1.09; Prothrombin Time Results 11.4 Sec (9.7-11.5)
[2022-12-08 06:08] LABS: Albumin, Blood 2.5 g/dL (3.4-5.0); Anion Gap 7 mmol/L (6-16); Blood Urea Nitrogen 11 mg/dL (8-24); CO2, Blood 29 mmol/L (21-32); Chloride, Blood 101 mmol/L (98-108); Glomerular Filtration Rate 62 (60-); Glucose, Blood 75 mg/dL (70-99); Magnesium, Blood 1.6 mg/dL (1.6-2.4); Phosphorus, Blood 2.6 mg/dL (2.5-4.9); Sodium, Blood 137 mmol/L (136-145)
[2022-12-08 07:42] VITALS: BP 132/89
[2022-12-08 15:11] VITALS: BP 94/72
--- NOTE | 2022-12-08 17:46 | NUR ---
SHIFT SUMMARY PT A&O TO SELF, PERSON, PLACE, AND SITUATION. REQUIRES REPORIENTATION TO TIME/DATE AND REMAINS MILDLY CONFUSED AND INCONTINENT AT TIMES. PT TOLERATING PO INTAKE AND DENIES PAIN. CALL LIGHT WITHIN REACH.
[2022-12-08 19:38] VITALS: BP 111/72
[2022-12-09 03:50] VITALS: BP 141/83
--- NOTE | 2022-12-09 03:59 | NUR ---
PATIENT WAS PLEASANT BUT VERY QUIET GIVING ONE WORK ANSWERS WHENEVER POSSIBLE. SHE WAS FOUND WITH HER HANDS IN HER BRIEF WHICH WAS FULL OF STOOL. INCONT OF URINE LATER IN THE SHIFT. NO COMPLAINTS OF PAIN INCLUDING SACRUM OR GLUTEAL FOLDS. SHE DID COMPLAIN ABOUT HIP PAIN TOWARDS THE MORNING. APAP GIVEN PER ORDERS.
[2022-12-09 05:39] LABS: BASOPHILS ABSOLUTE AUTO 0.03 K/mm3 (0.00-0.23); BASOPHILS PERCENT AUTO 1 % (0-2); EOSINOPHILS ABSOLUTE AUTO 0.11 K/mm3 (0.00-0.68); EOSINOPHILS PERCENT AUTO 2 % (0-6); Hematocrit 38.3 % (33.0-51.0); Hemoglobin 13.8 g/dL (11.5-16.0); IMMATURE GRAN ABSOLUTE AUTO 0.02 K/mm3 (0.00-0.10); IMMATURE GRAN PERCENT AUTO 0 % (0-1); LYMPHOCYTES ABSOLUTE AUTO 2.58 K/mm3 (0.84-5.20); LYMPHOCYTES PERCENT AUTO 41 % (21-46); MONOCYTES ABSOLUTE AUTO 0.33 K/mm3 (0.16-1.47); MONOCYTES PERCENT AUTO 5 % (4-13); Mean Corpuscular HGB 33.8 pg (26.0-34.0); Mean Corpuscular Volume 94 fL (80-100); Mean Platelet Volume 11.8 fL (9.1-12.4); NEUTROPHILS ABSOLUTE AUTO 3.25 K/mm3 (1.96-9.15); NEUTROPHILS PERCENT AUTO 52 % (41-73); Platelet Count 65 K/mm3 (150-400); RDW Coefficient Variation 14.2 % (11.7-14.2); Red Blood Cell Count 4.08 M/mm3 (3.80-5.20); White Blood Cell Count 6.32 K/mm3 (4.00-11.30)
[2022-12-09 06:11] LABS: Albumin, Blood 2.4 g/dL (3.4-5.0); Anion Gap 7 mmol/L (6-16); Blood Urea Nitrogen 13 mg/dL (8-24); Bun/Creatinine Ratio 12.1 (12.0-20.0); CO2, Blood 26 mmol/L (21-32); Calcium, Blood 8.2 mg/dL (8.5-10.1); Chloride, Blood 101 mmol/L (98-108); Creatinine, Blood 1.07 mg/dL (0.40-1.00); Glomerular Filtration Rate 57 (60-); Glucose, Blood 78 mg/dL (70-99); Phosphorus, Blood 2.5 mg/dL (2.5-4.9); Potassium, Blood 3.4 mmol/L (3.5-5.5); Sodium, Blood 134 mmol/L (136-145)
[2022-12-09 07:50] VITALS: BP 148/92
[2022-12-09 16:12] VITALS: BP 138/90
--- NOTE | 2022-12-09 16:59 | NUR ---
DAYSHIFT SUMMARY Patient alert & oriented x2, no acute changes to patient status. Minimal intake today, patient states she prefers to nibble on food when shes hungry. Therapy & PERSONAL INJURY LAW SPECIALIST worked with patient today. Vitals stable. Awaiting discharge planning.
[2022-12-09 20:40] VITALS: BP 127/80
[2022-12-10 02:38] VITALS: BP 158/90
--- NOTE | 2022-12-10 05:33 | NUR ---
PATIENT HAD MULTIPLE BOUTS OF ODORLOUS DIARRHEA. OVERNIGHT. BRI AND GLUTEAL FOLD AREAS STILL QUITE RED, BUT WITH ALL OF THE STOOL, IT WAS NOT POSSIBLE FOR PLACEMENT OF MEPILEX'S TO THE AREA, DUE TO THE AMOUNT OF STOOL. IN ADDITION, THE PATIENT WAS AGAIN HAVING MORE DIFFICULTIES WITH FOLLOWING COMMANDS WHILE BEING CHANGED (OR RECITING HER FULL NAME OR ). NO COMPLAINTS OF PAIN OR DISCOMFORT OVER NIGHT
[2022-12-10 05:53] LABS: BASOPHILS ABSOLUTE AUTO 0.03 K/mm3 (0.00-0.23); BASOPHILS PERCENT AUTO 1 % (0-2); EOSINOPHILS PERCENT AUTO 2 % (0-6); Hematocrit 31.1 % (33.0-51.0); Hemoglobin 10.9 g/dL (11.5-16.0); IMMATURE GRAN ABSOLUTE AUTO 0.02 K/mm3 (0.00-0.10); IMMATURE GRAN PERCENT AUTO 0 % (0-1); LYMPHOCYTES ABSOLUTE AUTO 1.93 K/mm3 (0.84-5.20); LYMPHOCYTES PERCENT AUTO 35 % (21-46); MONOCYTES ABSOLUTE AUTO 0.36 K/mm3 (0.16-1.47); MONOCYTES PERCENT AUTO 7 % (4-13); Mean Corpuscular HGB 33.9 pg (26.0-34.0); Mean Corpuscular Volume 97 fL (80-100); Mean Platelet Volume 12.8 fL (9.1-12.4); NEUTROPHILS ABSOLUTE AUTO 3.12 K/mm3 (1.96-9.15); NEUTROPHILS PERCENT AUTO 56 % (41-73); Platelet Count 56 K/mm3 (150-400); RDW Coefficient Variation 14.1 % (11.7-14.2); RDW Standard Deviation 50.1 fL (35.1-46.3); Red Blood Cell Count 3.22 M/mm3 (3.80-5.20); White Blood Cell Count 5.56 K/mm3 (4.00-11.30)
[2022-12-10 06:39] LABS: Albumin, Blood 2.4 g/dL (3.4-5.0); Anion Gap 6 mmol/L (6-16); Blood Urea Nitrogen 14 mg/dL (8-24); Bun/Creatinine Ratio 13.6 (12.0-20.0); CO2, Blood 27 mmol/L (21-32); Calcium, Blood 8.6 mg/dL (8.5-10.1); Chloride, Blood 100 mmol/L (98-108); Creatinine, Blood 1.03 mg/dL (0.40-1.00); Glomerular Filtration Rate 60 (60-); Glucose, Blood 67 mg/dL (70-99); Phosphorus, Blood 2.7 mg/dL (2.5-4.9); Potassium, Blood 3.3 mmol/L (3.5-5.5); Sodium, Blood 133 mmol/L (136-145)
[2022-12-10 07:36] VITALS: BP 117/77
[2022-12-10 16:06] VITALS: BP 111/66
--- NOTE | 2022-12-10 18:30 | NUR ---
SHIFT SUMMARY- PT IS ALERT, PLESANT AND COOPERTIVE. FAMILY WAS AT BEDSIDE THIS SHIFT. SHE IS RECIEVING IV ABX. PT IS INC. ATTENDS ARE IN PLACE. HER BED IS IN THE LOW POSITON AND CALL LIGHT IS WITIN REACH.
[2022-12-10 19:38] VITALS: BP 143/87
--- NOTE | 2022-12-11 03:34 | NUR ---
no changes overnight for mynor. again, she had a very flat affect, and looked to her Sig.other for answers to her and the situation that brought her to the hospital. pleasant and cooperative with care. No difficulty swallowing pills or thin liquids tonight
[2022-12-11 06:09] LABS: BASOPHILS ABSOLUTE AUTO 0.04 K/mm3 (0.00-0.23); BASOPHILS PERCENT AUTO 1 % (0-2); EOSINOPHILS ABSOLUTE AUTO 0.01 K/mm3 (0.00-0.68); EOSINOPHILS PERCENT AUTO 0 % (0-6); Hematocrit 29.6 % (33.0-51.0); Hemoglobin 10.9 g/dL (11.5-16.0); IMMATURE GRAN ABSOLUTE AUTO 0.07 K/mm3 (0.00-0.10); IMMATURE GRAN PERCENT AUTO 1 % (0-1); LYMPHOCYTES ABSOLUTE AUTO 2.54 K/mm3 (0.84-5.20); LYMPHOCYTES PERCENT AUTO 47 % (21-46); MONOCYTES ABSOLUTE AUTO 0.45 K/mm3 (0.16-1.47); MONOCYTES PERCENT AUTO 8 % (4-13); Mean Corpuscular HGB Conc 36.8 g/dL (31.5-36.5); Mean Platelet Volume 12.8 fL (9.1-12.4); NEUTROPHILS ABSOLUTE AUTO 2.35 K/mm3 (1.96-9.15); NEUTROPHILS PERCENT AUTO 43 % (41-73); Platelet Count 62 K/mm3 (150-400); RDW Coefficient Variation 13.5 % (11.7-14.2); RDW Standard Deviation 45.7 fL (35.1-46.3); Red Blood Cell Count 3.21 M/mm3 (3.80-5.20); White Blood Cell Count 5.46 K/mm3 (4.00-11.30)
[2022-12-11 06:12] VITALS: BP 159/96
[2022-12-11 06:21] LABS: Albumin, Blood 2.6 g/dL (3.4-5.0); Anion Gap 6 mmol/L (6-16); Blood Urea Nitrogen 12 mg/dL (8-24); Bun/Creatinine Ratio 12.1 (12.0-20.0); CO2, Blood 28 mmol/L (21-32); Calcium, Blood 8.7 mg/dL (8.5-10.1); Chloride, Blood 101 mmol/L (98-108); Creatinine, Blood 0.99 mg/dL (0.40-1.00); Glomerular Filtration Rate 63 (60-); Glucose, Blood 79 mg/dL (70-99); Phosphorus, Blood 3.2 mg/dL (2.5-4.9); Potassium, Blood 3.4 mmol/L (3.5-5.5); Sodium, Blood 135 mmol/L (136-145)
[2022-12-11 06:30] LABS: Mean Corpuscular Volume 92 fL (80-100)
[2022-12-11 07:26] VITALS: BP 152/92
[2022-12-11] MEDS ORDERED: ACET325 PO (12:51)
[2022-12-11] MEDS ORDERED: Q-Tussin100 MG/5 M PO (12:52)
[2022-12-11] MEDS ORDERED: LOPE2C PO (12:53)
[2022-12-11] MEDS ORDERED: MELA3 PO (12:53)
[2022-12-11] MEDS ORDERED: POTCHL20ER PO (12:54)
--- NOTE | 2022-12-11 14:35 | NUR ---
DISCHARGE: PT D/C @1430 VIA WHEELCHAIR WITH . STATES FAMILY IS WAITING AT HOME AND CAN HELP TRANSFER PT IF HE IS UNABLE. MEDICATIONS FAXED TO [facility]. IV REMOVED W/O COMPLICATIONS. SIGNED D/C FORMS D/T PT HAVING CONTRACTURES IN BOTH HANDS.
== END 2022-12-11 14:32 | disposition home or self-care (01) | DRG 177 ==
LOC: ER 18:19 → MEDS 18:20
PROVIDERS: Family Medicine; Internal Medicine; Student in an Organized Health Care Education/Training Program; ADMIT Student in an Organized Health Care Education/Training Program
PROC: 8E0ZXY6 Isolation (ICD-10-PCS; principal; 2022-12-06)
PROC: HZ2ZZZZ Detoxification Services for Substance Abuse Treatment (ICD-10-PCS; 2022-12-06)
DX: U07.1 COVID-19 (principal); E43 Unspecified severe protein-calorie malnutrition; G92.8 Other toxic encephalopathy; N17.9 Acute kidney failure, unspecified; N39.0 Urinary tract infection, site not specified; E87.1 Hypo-osmolality and hyponatremia; I13.0 Hypertensive heart and chronic kidney disease with heart failure and stage 1 through stage 4 chronic kidney disease, or unspecified chronic kidney disease; F10.27 Alcohol dependence with alcohol-induced persisting dementia; Z68.1 Body mass index [BMI] 19.9 or less, adult; E87.6 Hypokalemia; D63.1 Anemia in chronic kidney disease; D69.59 Other secondary thrombocytopenia; K70.9 Alcoholic liver disease, unspecified; E03.9 Hypothyroidism, unspecified; E83.42 Hypomagnesemia; N18.30 Chronic kidney disease, stage 3 unspecified; M32.9 Systemic lupus erythematosus, unspecified; J44.9 Chronic obstructive pulmonary disease, unspecified; F17.200 Nicotine dependence, unspecified, uncomplicated; I48.91 Unspecified atrial fibrillation; I50.9 Heart failure, unspecified; F10.21 Alcohol dependence, in remission; Z79.82 Long term (current) use of aspirin; Z79.890 Hormone replacement therapy
CPT/HCPCS: 0241U; 36415; 70450; 71045; 80053; 80069; 81001; 82140; 82947; 83735; 84439; 84443; 85025; 85027; 85610; 87077; 87086; 87186; 92526; 92610; 93005; 93010; 94760; 96361; 96365; 96366; 96367; 96368; 97110; 97162; 97530; 99285-25; A9270; G0378; J0696; J3411; J3475; J3480; J7030; J7120

== ENCOUNTER 2024-05-09 17:34 | Observation (INO) | payer MEDICARE ==
[~2024-05-09] VITALS: Ht 149.9 cm; Wt 50.0 kg
[2024-05-09 17:34] VITALS: BP 75/37
[~2024-05-09 17:34] MED LIST changes: +ACET325 PO; +Etomidate 2MG / ML 10ML Vial XX ONE; +Ketamine HCl 100 MG / ML 5ML Vial IV ONE; +LOPE2C PO; +MELA3 PO; +POTCHL20ER PO; +Q-Tussin100 MG/5 M PO; +Rocuronium Bromide 10 MG/ML 5ML Injection IV ONE
--- NOTE | 2024-05-09 17:45 | NUR ---
"Spritual Care | Trauma Team Assistance is given to the trauma staff. Will remain available to Pt. and any family who might arrive."
[2024-05-09 17:46] LABS: Calcium, Ionized (POC) 0.89 mmol/L (1.10-1.46); Chloride (POC) 97 mmol/L (98-108); Creatinine (POC) 1.6 mg/dL (0.6-1.0); Glucose (ISTAT POC) 140 mg/dL (70-99); Hemoglobin (POC) 13.9 g/dL (12.0-16.0); Potassium (POC) 6.1 mmol/L (3.5-5.5); Sodium (POC) 134 mmol/L (135-148); Total CO2 (POC) 23 mmol/L (21-32)
[2024-05-09] MEDS ORDERED: Insulin Regular 100 Unit/ML 1ML Dose IV ONE (17:50)
[2024-05-09] MEDS ORDERED: Dextrose 50% 50 ML Syringe IV ONE (17:50)
[2024-05-09] MEDS ORDERED: Albuterol 2.5 MG/3 ML VIAL INH SCH (17:50)
[2024-05-09] MEDS ORDERED: Sodium Bicarb 8.4% 1 MEQ/ML 50 ML Vial IV ONE (17:50)
[2024-05-09] MEDS ORDERED: Calcium Gluconate 10% 100 MG/ML INJ IV ONE (17:50)
[2024-05-09 17:54] LABS: Bicarbonate Venous 18.5 mmol/L (24.0-30.0); PCO2 Venous 40.9 mmHg (38-42)
[2024-05-09 17:55] LABS: Base Excess Venous -7.8 mmol/L
[2024-05-09] MEDS ORDERED: NS 1,000 ML IV SCH (17:55)
[2024-05-09] MEDS ORDERED: Dextrose 50% 50 ML Vial IV ONE (17:55)
[2024-05-09] MEDS ORDERED: FentaNYL Citrate 50 MCG/ML 2 ML Injection ONE (17:57)
[2024-05-09] MEDS ORDERED: Ketamine HCL 100 MG in NS 100 ML IV SCH (18:00)
[2024-05-09] MEDS ORDERED: fentaNYL citrate 1,000 MCG in NS 80 ML IV SCH (18:00)
[2024-05-09] MEDS ORDERED: Ipratropium/Albuterol SulF 2.5-0.5MG/3 ML Amp INH ONE (18:00)
[2024-05-09] MEDS ORDERED: Ketamine HCL 1,000 MG in NS 100 ML IV SCH (18:05)
[2024-05-09 18:41] LABS: Hematocrit 26.9 % (33.0-51.0); Mean Corpuscular Volume 108 fL (80-100); Mean Platelet Volume 11.2 fL (9.1-12.4); NRBC ABSOLUTE 0.04 K/mm3 (0.00-0.02); NRBC Auto 0.4 /100 WBC (0.0-0.2); Platelet Count 459 K/mm3 (150-400); RDW Coefficient Variation 18.2 % (11.7-14.2); RDW Standard Deviation 62.5 fL (35.1-46.3); White Blood Cell Count 11.13 K/mm3 (4.00-11.30)
[2024-05-09 18:42] LABS: Mean Corpuscular HGB Conc 37.2 g/dL (31.5-36.5)
[2024-05-09 19:04] LABS: BASOPHILS PERCENT MAN 0 % (0-2); EOSINOPHILS PERCENT MAN 0 % (0-6); LYMPHOCYTES ABSOLUTE MAN 4.67 K/mm3 (0.84-5.20); LYMPHOCYTES PERCENT MAN 42 % (21-46); MONOCYTES ABSOLUTE MAN 0.22 K/mm3 (0.16-1.47); MONOCYTES PERCENT MAN 2 % (4-13); NEUTROPHILS ABSOLUTE MAN 6.23 K/mm3 (1.96-9.15); SEG NEUTROPHILS PERCENT MAN 56 % (41-73); TOTAL CELLS COUNTED 100
[2024-05-09 19:13] LABS: Alanine Aminotransfer (ALT/SGP 58 U/L (12-78); Albumin, Blood 1.1 g/dL (3.4-5.0); Albumin/Globulin Ratio 0.4 (0.8-1.8); Alk Phos 197 U/L (50-136); Aspartate Aminotrans (AST/SGOT 451 U/L (12-37); Bilirubin, Total 0.6 mg/dL (0.1-1.0); Blood Urea Nitrogen 7 mg/dL (8-24); Bun/Creatinine Ratio 10.9 (12.0-20.0); CO2, Blood 19 mmol/L (21-32); Calcium, Blood 5.6 mg/dL (8.5-10.1); Chloride, Blood 109 mmol/L (98-108); Creatinine, Blood 0.64 mg/dL (0.40-1.00); Globulin, Blood 2.5 g/dL (2.2-4.0); Glomerular Filtration Rate 96 (60-); Glucose, Blood 111 mg/dL (70-99); Sodium, Blood 141 mmol/L (136-145); Total Protein, Blood 3.6 g/dL (6.4-8.2)
[2024-05-09 19:19] LABS: Anion Gap Unable to Calculate mmol/L (3-11)
[2024-05-09] MEDS ORDERED: LORazepam 2 MG/ML 1ML Injection IV ONE ×2 (20:00→20:05)
[2024-05-09] MEDS ORDERED: FentaNYL Citrate 50 MCG/ML 2 ML Injection IV ONE (20:00)
[2024-05-09] MEDS ORDERED: Haloperidol Lactate Inj. 5 MG/ML Injection IV PRN (20:45)
[2024-05-09] MEDS ORDERED: Metoclopramide HCl 5MG / ML 2ML Vial IV PRN (20:45)
[2024-05-09] MEDS ORDERED: Ondansetron HCl 2 MG / ML 2ML Vial IV PRN (20:45)
[2024-05-09] MEDS ORDERED: HYDROmorphone HCl/Pf 1MG SYR IV PRN (20:50)
[2024-05-09] MEDS ORDERED: LORazepam 2 MG/ML 1ML Injection IV PRN (20:50)
[2024-05-09] MEDS ORDERED: Morphine Sulfate 20 MG/1ML 1 ML Oral Syringe SL PRN (20:50)
[2024-05-09] MEDS ORDERED: FentaNYL 25 MCG Patch TOP SCH (21:00)
[2024-05-10 11:16] LABS: pH Blood Venous 7.28 (7.34-7.37)
== END 2024-05-10 23:00 | disposition home or self-care (01) ==
LOC: ER 17:34 → ERHOLD 17:35
PROVIDERS: Student in an Organized Health Care Education/Training Program; ADMIT Student in an Organized Health Care Education/Training Program
DX: T31.8 Burns involving 80-89% of body surface (principal); I95.9 Hypotension, unspecified; M32.9 Systemic lupus erythematosus, unspecified; E05.00 Thyrotoxicosis with diffuse goiter without thyrotoxic crisis or storm; I13.0 Hypertensive heart and chronic kidney disease with heart failure and stage 1 through stage 4 chronic kidney disease, or unspecified chronic kidney disease; N18.30 Chronic kidney disease, stage 3 unspecified; I50.9 Heart failure, unspecified; J44.9 Chronic obstructive pulmonary disease, unspecified; I48.91 Unspecified atrial fibrillation; F17.200 Nicotine dependence, unspecified, uncomplicated; J96.91 Respiratory failure, unspecified with hypoxia; Z66 Do not resuscitate; Z79.82 Long term (current) use of aspirin; Z79.890 Hormone replacement therapy; Z79.899 Other long term (current) drug therapy; Z90.81 Acquired absence of spleen; X08.8XXA Exposure to other specified smoke, fire and flames, initial encounter; Y92.009 Unspecified place in unspecified non-institutional (private) residence as the place of occurrence of the external cause
CPT/HCPCS: 31500; 51702; 71045; 80047; 80053; 82375; 82803; 83605; 85014; 85025; 93005; 93010; 94002; 94644; 94664; 96365; 96366; 96375-59; 99291-25; A9270; G0390; J0612; J2060; J3010